=== PATIENT | male | born 1990 | race Caucasian/White ===

== ENCOUNTER 2024-12-21 16:12 | Emergency (ER) | payer OTHER ==
[2024-12-21 16:26] VITALS: PULSE 68; TEMP 98.3
--- NOTE | 2024-12-21 18:00 | ED ---
Lower Extremity Injury HPI - General Chief Complaint: Extremity Injury, Lower Stated Complaint: L knee injury Time Seen by Provider: 12/21/24 17:57 Source: patient, RN notes reviewed Mode of arrival: wheelchair Limitations: no limitations - History of Present Illness Initial Comments: 34-year-old male presenting for left knee pain x 1 hour. States he was playing kickball when he went to kick the ball with his right foot, slipped on the grass, and fell onto his buttocks. States his left knee twisted on the way down and believes it is dislocated. Admits pain with weightbearing. No other injuries. - Related Data Allergies Allergy/AdvReac Type Severity Reaction Status Date / Time No Known Allergies Allergy Verified 12/21/24 16:26 Review of Systems ROS Statement: Those systems with pertinent positive or pertinent negative responses have been documented in the HPI. ROS Other: All systems not noted in ROS Statement are negative. Past Medical History Past Medical History: No Reported History Past Surgical History: No Surgical Hx Reported Smoking Status: Vaper Past Alcohol Use History: Occasional Past Drug Use History: None Reported General Exam Limitations: no limitations General appearance: alert, in no apparent distress Head exam: Present: atraumatic, normocephalic, normal inspection Eye exam: Present: normal appearance, PERRL, EOMI. Absent: scleral icterus, con junctival injection, periorbital swelling Left Upper Leg exam: Present: normal inspection, full ROM. Absent: tenderness, swelling Knee exam: Present: full ROM, tenderness, swelling, deformity. Absent: normal inspection (Diffuse swelling on left knee and asymmetry consistent with patellar dislocation), abrasion, laceration, pain/laxity with valgus, pain/laxity with varus Lower Leg exam: Present: normal inspection, full ROM. Absent: tenderness, swelling Ankle exam: Present: normal inspection, full ROM. Absent: tenderness, swelling Foot/Toe exam: Present: normal inspection, full ROM. Absent: tenderness, swelling Neurovascular tendon exam: Present: no vascular compromise. Absent: pulse deficit, abnormal cap refill Neurological exam: Present: alert, oriented X3 Psychiatric exam: Present: normal affect, normal mood Skin exam: Present: warm, dry, intact, normal color. Absent: rash Course Vital Signs 12/21/24 16:23 Temperature 98.3 F Pulse Rate 68 Respiratory 17 Rate Blood Pressure 121/80 O2 Sat by Pulse 96 Oximetry Medical Decision Making - Medical Decision Making Was pt. sent in by a medical professional or institution (, [facility], [employer], urgent care, hospital, or halfway...) When possible be specific @ -No Did you speak to anyone other than the patient for history (EMS, parent, family, police, friend...)? What history was obtained from this source @ -No Did you review nursing and triage notes (agree or disagree)? Why? @ -I reviewed and agree with nursing and triage notes Were old charts reviewed (outside hosp., previous admission, EMS record, old EKG, old radiological studies, urgent care reports/EKG's, halfway records)? Report findings @ -No old charts were reviewed Differential Diagnosis (chest pain, altered mental status, abdominal pain women, abdominal pain men, vaginal bleeding, weakness, fever, dyspnea, syncope, headache, dizziness, GI bleed, back pain, seizure, CVA, palpatations, mental health, musculoskeletal)? @ -Differential Musculoskeletal Muscular strain, contusion, ligament sprain, fracture, arthritis, septic arthritis, bursitis, cellulitis, muscle spasm, nerve compression, DVT, arterial occlusion, herpes zoster, electrolyte abnormality, tumor.... This is not meant to be in all inclusive list EKG interpreted by me (3pts min.). @ -None X-rays interpreted by me (1pt min.). @ -X-ray left knee interpreted by me reveals patella tendon rupture CT interpreted by me (1pt min.). @ -None done U/S interpreted by me (1pt. min.). @ -None done What testing was considered but not performed or refused? (CT, X-rays, U/S, labs)? Why? @ -None What meds were considered but not given or refused? Why? @ -None Did you discuss the management of the patient with other professionals (professionals i.e. [facility] Amanda, [employer], lab, RT, psych nurse, director of social services, dress designer, teacher, light armored vehicle officer, rehabilitation caseworker)? Give summary @ -I spoke with [facility] on-call orthopedic who agrees with diagnosis of patella tendon rupture and recommends knee immobilizer, crutches, and outpatient follow- up with no weightbearing Was smoking cessation discussed for >3mins.? @ -No Was critical care preformed (if so, how long)? @ -No Were there social determinants of health that impacted care today? How? (Homelessness, low income, unemployed, alcoholism, drug addiction, transportation, low edu. Level, literacy, decrease access to med. care, fpc, rehab)? @ -No Was there de-escalation of care discussed even if they declined (Discuss DNR or withdrawal of care, Hospice)? DNR status @ -No What co-morbidities impacted this encounter? (DM, HTN, Smoking, COPD, CAD, Cancer, CVA, ARF, Chemo, Hep., AIDS, mental health diagnosis, sleep apnea, morbid obesity)? @ -None Was patient admitted / discharged? Hospital course, mention meds given and route, prescriptions, significant lab abnormalities, going to OR and other pertinent info. @ -Discharge. 34-year-old male presenting for left knee injury 1 hour ago while playing kickball. Significant edema to left knee and asymmetrical knees consistent with patellar dislocation. Neurovascularly intact. Provided with ibuprofen and ice for supportive care. Patient is able to extend left leg. X- ray left knee reveals patella tendon rupture. Per orthopedics recommendations, patient will be placed in knee immobilizer with crutches and will follow-up with orthopedics early next week. Appropriate return precautions and supportive care discussed. Case was discussed with my ED attending Dr. Foley. Undiagnosed new problem with uncertain prognosis? @ -No Drug Therapy requiring intensive monitoring for toxicity (Heparin, Nitro, Insulin, Cardizem)? @ -No Were any procedures done? @ -No Diagnosis/symptom? @ -Left patella tendon rupture Acute, or Chronic, or Acute on Chronic? @ -Acute Uncomplicated (without systemic symptoms) or Complicated (systemic symptoms)? @ -Uncomplicated Side effects of treatment? @ -No Exacerbation, Progression, or Severe Exacerbation? @ -No Poses a threat to life or bodily function? How? (Chest pain, [place], [place], pneumonia, PE, COPD, DKA, ARF, appy, cholecystitis, CVA, Diverticulitis, Homicidal, Suicidal, threat to staff... and all critical care pts) @ -No Disposition Clinical Impression: Rupture of left patellar tendon Disposition: HOME SELF-CARE Condition: Stable Instructions (If sedation given, give patient instructions): Patellar Tendon Repair (DC) Additional Instructions: Use knee immobilizer and crutches. Remain nonweightbearing until orthopedic follow-up. Apply ice and take ibuprofen/Tylenol for pain. Follow-up with orthopedics early next week. Please return to the Emergency Department if symptoms worsen or any other concerns. Is patient prescribed a controlled substance at d/c from ED?: No Referrals: Vaughn Rangel DO [Doctor of Osteopathic Medicine] - 1-2 days Atilio Saab DO [Doctor of Osteopathic Medicine] - 1-2 days Time of Disposition: 18:54
[2024-12-21] MEDS: IBUPROFEN 800 MG TAB PO STA (18:08)
--- NOTE | 2024-12-21 18:14 | XR ---
EXAMINATION TYPE: XR knee complete LT DATE OF EXAM: 12/21/2024 6:07 PM COMPARISON: None. CLINICAL INDICATION: Male, 34 years old with history of left knee injury; PHH, pain TECHNIQUE: XR knee complete LT views submitted.. FINDINGS: No evidence of any acute osseous pathology, soft tissue swelling, or joint effusion is no christiano. IMPRESSION: No acute fracture or dislocation. [facility], , 12/21/2024 6:12 PM
[2024-12-21 19:09] VITALS: BP 150/89; RESP 18
== END 2024-12-21 19:09 | disposition home or self-care (01) ==
LOC: EC 16:12
DX: S76.112A Strain of left quadriceps muscle, fascia and tendon, initial encounter (principal); F17.290 Nicotine dependence, other tobacco product, uncomplicated; X50.1XXA Overexertion from prolonged static or awkward postures, initial encounter; Y93.69 Activity, other involving other sports and athletics played as a team or group
CPT/HCPCS: 73562; 99283; L1830